=== PATIENT | female | born 1945 | race African-American/Black ===

== ENCOUNTER 2020-11-09 12:22 | Inpatient (IN) | payer MEDICARE ==
[~2020-11-09] VITALS: Ht 157.5 cm; Wt 80.0 kg
--- NOTE | 2020-11-09 13:23 | RAD ---
EXAM: Chest, single view. HISTORY: Stroke. COMPARISON: None. FINDINGS: A frontal view of the chest is obtained. There is no infiltrate, pleural effusion or pneumo thorax. The heart is normal in size. IMPRESSION: No acute pulmonary finding. Electronically signed by: Christina Marin MD (11/09/2020 1:20 PM) [id number]
--- NOTE | 2020-11-09 13:43 | RAD ---
EXAM: Head CT without contrast. HISTORY: Stroke. TECHNIQUE: Computed tomographic images of the head were obtained without contrast. *One or more of the following individualized dose reduction techniques were utilized for this examina tion: 1. Automated exposure control. 2. Adjustment of the mA and/or kV according to patient size. 3. Use of iterative reconstruction technique. COMPARISON: None. FINDINGS: There is no acute or subacute extra-axial or intraparenchymal hemorrhage. There is no mass effect or midline shift. There is no hydrocephalus. There are subtle areas of hypodensity within the cerebral white matter, likely due to chronic small v essel disease in a patient of this age. The possibility of a superimposed right frontal lobe infarct of uncertain chronicity is not excluded on this exam. The visualized portions of the orbits, paranasal sinuses and mastoid air cells are unremarkable. No s uspicious calvarial lesion is seen. IMPRESSION: 1. Subtle region of hypodensity within the right frontal lobe suggesting a subacute or chronic infarc t. MRI is more sensitive for acute infarction. 2. Bilateral cerebral white matter changes likely due to chronic small vessel disease in a patient of this age. Findings were discussed with Dr. Kathrine Nix at 1340 hours on 11/09/2020. Electronically signed by: Christina Marin MD (11/09/2020 1:41 PM) [id number]
--- NOTE | 2020-11-09 13:49 | PHYS DOC ---
General Adult EDM: Chief Complaint: EYE PROBLEMS HPI: HPI: Patient is a 75 year old female with history of hypertension presents emergency department for right vision changes. Patient reports blurry vision that started November 06. She reports on Monday she felt like her vision was all dark with a small pinhole that she could see out of. She reports that it has gotten slightly better. She reports that she went to the family physician today and the family physician sent her to the eye doctor and the eye doctor sent her to the emergency department. It speak with the lane marker installer . I did speak with the lane marker installer Dr. 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 He sent her to the emergency department for stroke work-up. He recommended sed rate CRP CBC with platelets to rule out giant cell arteritis. This did occur 3 days ago therefore would have minimal success with treatment but does need work- up. On my exam patient reports no other symptoms beside the vision abnormalities. No headache, numbness, weakness, abdominal pain, chest pain, shortness of breath, syncope, neck pain, recent illnesses sick contacts or recent travel. Patient did get her [employer] Covid vaccine 1 week ago. No sick contacts. Patient has never had a stroke or heart attack. Review of Systems: Review of Systems: Review of Systems: Constitutional: Denies fever or chills Eyes: Denies rednes. HENT: Denies nasal congestion or sore throat Respiratory: Denies cough or shortness of breath Cardiovascular: Denies chest pain or palpitations GI: denies abdominal pain and nausea, denies vomiting or diarrhea : Denies dysuria or hematuria Musculoskeletal: Denies back pain or joint pain Integument: Denies rash or skin lesions Neurologic: Denies headache, focal weakness or sensory changes Heart Score: C/O Chest Pain: No Physical Exam: PE: *GENERAL APPEARANCE: Awake and alert. Cooperative. No acute distress. Non toxic appearing. HEAD: Normocephalic. Atraumatic. EYES: EOM's grossly intact. Sclera anicteric. Conjunctiva clear. Pupils dilated. ENT:. Airway patent. Mucous membranes moist. No trismus. Tolerating secretions. NECK: Supple. Trachea midline. HEART: Regular rate and rhythm. Radial pulses 2+. Good capillary refill. LUNGS: Respirations unlabored. Clear to auscultation bilaterally. No rales, rhonchi, wheezing or retractions. ABDOMEN: Soft. Non-tender. No guarding or rebound. No CVA tenderness. No palpable or pulsatile mass. EXTREMITIES: No acute deformities. No edema, erythema or calf tenderness. SKIN: Warm and dry. No rash. NEUROLOGICAL: Alert and oriented x3. Cranial nerves II through XII intact. Sensation is normal. Speech normal. Muscle strength is 5 out of 5 bilateral upper and lower extremities. No gross neurological deficits. Moves all 4 extrem ities spontaneously. Cerebellar functions intact. Finger to nose and heel to hung are normal. Gait is stable. No nystagmus. PSYCHIATRIC: Normal mood. EKG: EKG: [] EKG interpretation shows sinus rhythm with ventricular rate of 89 bpm. MI interval 164 ms. QRS duration 120 ms. QTc 478 ms. Radiology/Procedures: Radiology/Procedures: [] Course & Med Decision Making: Course & Med Decision Making Medical decision making: This is a 75-year-old female diagnosed with central retinal artery occlusion at lane marker installer office sent to the emergency department for stroke work-up and r/o GCA. Patient had vision abnormalities as started on 06 November. She has had no other neurologic deficits. No headache. Patient has no history of stroke. Here in the emergency department patient's vital signs are stable. EKG showed no acute ST segment elevations. CT of the head showed no acute intracranial hemorrhage. Subtle region of hypodensity in the right frontal lobe suggesting subacute or chronic infarct. Bilateral cerebral white matter changes. Chest x-ray showed no acute cardiopulmonary findings. I did speak with the on-call neurologist, Dr. Oseguera. Recommend starting Solu-Medrol. Will continue stroke evaluation. At this time based on patient's symptoms and findings will admit to the hospital for further observation and evaluation. Spoke with patient. Agreeable to admission. They are aware of all labs and imaging. All questions answered and patient stable at time of admission. PATIENT: NAYLA BUCKLEY ACCOUNT: [id number] : 1945 LOCATION: ER AGE: 75 SEX: F EXAM STATUS: REG ER ORD. PHYSICIAN: KIM YAÑEZ DO REASON: CRAO, stroke work up PROCEDURE: CT HEAD WO CONTRAST EXAM: Head CT without contrast. HISTORY: Stroke. TECHNIQUE: Computed tomographic images of the head were obtained without contrast. *One or more of the following individualized dose reduction techniques were utilized for this examination: 1. Automated exposure control. 2. Adjustment of the mA and/or kV according to patient size. 3. Use of iterative reconstruction technique. COMPARISON: None. FINDINGS: There is no acute or subacute extra-axial or intraparenchymal hemorrhage. There is no mass effect or midline shift. There is no hydrocephalus. There are subtle areas of hypodensity within the cerebral white matter, likely due to chronic small vessel disease in a patient of this age. The possibility of a superimposed right frontal lobe infarct of uncertain chronicity is not ex cluded on this exam. The visualized portions of the orbits, paranasal sinuses and mastoid air cells are unremarkable. No suspicious calvarial lesion is seen. IMPRESSION: 1. Subtle region of hypodensity within the right frontal lobe suggesting a subacute or chronic infarct. MRI is more sensitive for acute infarction. 2. Bilateral cerebral white matter changes likely due to chronic small vessel disease in a patient of this age. Findings were discussed with Dr. Kathrine Nix at 1340 hours on 11/09/2020. Electronically signed by: Christina Arreola MD (11/09/2020 1:41 PM) [id number] DICTATED and SIGNED BY: CHRISTINA ARREOLA MD DATE: 11/09/20 [id number] PATIENT: NAYLA BUCKLEY ACCOUNT: [id number] : 1945 LOCATION: ER AGE: 75 SEX: F EXAM STATUS: REG ER ORD. PHYSICIAN: KIM YAÑEZ DO REASON: stroke work up PROCEDURE: CHEST AP ONLY EXAM: Chest, single view. HISTORY: Stroke. COMPARISON: None. FINDINGS: A frontal view of the chest is obtained. There is no infiltrate, pleural effusion or pneumothorax. The heart is normal in size. IMPRESSION: No acute pulmonary finding. Electronically signed by: Christina Arreola MD (11/09/2020 1:20 PM) [id number] DICTATED and SIGNED BY: CHRISTINA ARREOLA MD DATE: 11/09/20 [id number] Fam Disclaimer: Fam Disclaimer: This electronic medical record was generated, in whole or in part, using a voice recognition dictation system. Departure Departure Impression: Primary Impression: Central retinal artery occlusion of right eye Disposition: ADMITTED INPATIENT Admitting Physician: LUKASZ (Book with Dr. Conley at 1545. Accepts admission. Will see patient. Patient stable at time of admission.) Referrals: ESDRAS NICHOLS MD (PCP) KIM YAÑEZ DO Nov 09, 2020 13:49
--- NOTE | 2020-11-09 14:07 | EKG ---
[facility] [address] [place] [address] Test Date: 2020-11-09 Test Time: 13:36:57 Pat Name: NAYLA BUCKLEY Department: Room: Gender: F Director Orange: : 1945 Requested By: KIM YAÑEZ Order Number: [id number] Reading MD: Measurements Intervals Telferner Rate: 89 P: 36 MO: 164 QRS: 11 QRSD: 120 T: 139 QT: 392 QTc: 478 Interpretive Statements SINUS RHYTHM T ABNORMALITY IN HIGH LATERAL LEADS INFERIOR LEADS ABNORMAL ECG RI6.02 No previous ECG available for comparison
[2020-11-09 14:40] LABS: BASO % 0 % (0-3); EOS # 0.1 x10^3/uL (0.0-0.7); EOS % 1 % (0-3); HEMATOCRIT 38.6 % (36.0-47.0); LYMPH % 38 % (24-48); MEAN CORPUSCULAR HEMOGLOBIN 32 pg (25-35); MEAN CORPUSCULAR HGB CONC 34 g/dL (31-37); MEAN CORPUSCULAR VOLUME 94 fL (79-100); MONO # 0.5 x10^3/uL (0.0-1.1); MONO % 6 % (0-9); NEUT # 4.3 x10^3/uL (1.8-7.7); NEUT % 55 % (31-73); PLATELET COUNT 247 x10^3/uL (140-400); RED BLOOD COUNT 4.13 x10^6/uL (3.50-5.40); RED CELL DISTRIBUTION WIDTH 12.8 % (11.5-14.5); WHITE BLOOD COUNT 7.8 x10^3/uL (4.0-11.0)
[2020-11-09 14:58] LABS: CALCIUM 9.3 mg/dL (8.5-10.1); CREATININE 0.8 mg/dL (0.6-1.0); GFR 84.4; POTASSIUM 4.1 mmol/L (3.5-5.1)
[2020-11-09 15:03] LABS: ALBUMIN 3.3 g/dL (3.4-5.0); ALBUMIN/GLOBULIN RATIO 0.8 (1.0-1.7); TOTAL BILIRUBIN 0.2 mg/dL (0.2-1.0); TOTAL PROTEIN 7.7 g/dL (6.4-8.2)
[2020-11-09] MEDS ORDERED: methylPREDNISolone SOD SUCC PF 125 MG/2 ML VIAL. IV ONE (16:00)
--- NOTE | 2020-11-09 16:07 | PDOC2 ---
NEUROLOGY CONSULT Date of Service DOS: DATE: 11/09/20 TIME: 16:05 Reason for Consult Reason for Consult: Right eye problems Source Source: Caregiver, Chart review, Patient History of Present Illness History of Present Illness disregard, duplicate Current Medications Current Medications Current Medications Methylprednisolone Sodium Succinate (SOLU-Medrol 125MG VIAL) 125 mg 1X ONCE IV ; Start 11/09/20 at 16:00; Stop 11/09/20 at 16:01; Status UNV Allergies Allergies: Coded Allergies: acetaminophen (Verified Allergy, Severe, Lip swelling, 11/09/20) ROS Review of System Negative for fever, chills, weight loss, shortness of breath, chest pain, indigestion, hematochezia, melena, and dysuria. Full 14-point review of systems is negative. Labs Labs Laboratory Tests Test 11/09/20 14:30 White Blood Count 7.8 x10^3/uL (4.0-11.0) Red Blood Count 4.13 x10^6/uL (3.50-5.40) Hemoglobin 13.0 g/dL (12.0-15.5) Hematocrit 38.6 % (36.0-47.0) Mean Corpuscular Volume 94 fL (79-100) Mean Corpuscular Hemoglobin 32 pg (25-35) Mean Corpuscular Hemoglobin Concent 34 g/dL (31-37) Red Cell Distribution Width 12.8 % (11.5-14.5) Platelet Count 247 x10^3/uL (140-400) Neutrophils (%) (Auto) 55 % (31-73) Lymphocytes (%) (Auto) 38 % (24-48) Monocytes (%) (Auto) 6 % (0-9) Eosinophils (%) (Auto) 1 % (0-3) Basophils (%) (Auto) 0 % (0-3) Neutrophils # (Auto) 4.3 x10^3/uL (1.8-7.7) Lymphocytes # (Auto) 3.0 x10^3/uL (1.0-4.8) Monocytes # (Auto) 0.5 x10^3/uL (0.0-1.1) Eosinophils # (Auto) 0.1 x10^3/uL (0.0-0.7) Basophils # (Auto) 0.0 x10^3/uL (0.0-0.2) Erythrocyte Sedimentation Rate 69 (0-25) Sodium Level 143 mmol/L (136-145) Potassium Level 4.1 mmol/L (3.5-5.1) Chloride Level 104 mmol/L (98-107) Carbon Dioxide Level 32 mmol/L (21-32) Anion Gap 7 (6-14) Blood Urea Nitrogen 13 mg/dL (7-20) Creatinine 0.8 mg/dL (0.6-1.0) Estimated GFR (Cockcroft-Gault) 84.4 BUN/Creatinine Ratio 16 (6-20) Glucose Level 213 mg/dL (70-99) Calcium Level 9.3 mg/dL (8.5-10.1) Total Bilirubin 0.2 mg/dL (0.2-1.0) Aspartate Amino Transf (AST/SGOT) 15 U/L (15-37) Alanine Aminotransferase (ALT/SGPT) 29 U/L (14-59) Alkaline Phosphatase 71 U/L (46-116) Troponin I Quantitative < 0.017 ng/mL (0.000-0.055) C-Reactive Protein, Quantitative 3.9 mg/L (0-3.3) Total Protein 7.7 g/dL (6.4-8.2) Albumin 3.3 g/dL (3.4-5.0) Albumin/Globulin Ratio 0.8 (1.0-1.7) Laboratory Tests Test 11/09/20 14:30 White Blood Count 7.8 x10^3/uL (4.0-11.0) Red Blood Count 4.13 x10^6/uL (3.50-5.40) Hemoglobin 13.0 g/dL (12.0-15.5) Hematocrit 38.6 % (36.0-47.0) Mean Corpuscular Volume 94 fL (79-100) Mean Corpuscular Hemoglobin 32 pg (25-35) Mean Corpuscular Hemoglobin Concent 34 g/dL (31-37) Red Cell Distribution Width 12.8 % (11.5-14.5) Platelet Count 247 x10^3/uL (140-400) Neutrophils (%) (Auto) 55 % (31-73) Lymphocytes (%) (Auto) 38 % (24-48) Monocytes (%) (Auto) 6 % (0-9) Eosinophils (%) (Auto) 1 % (0-3) Basophils (%) (Auto) 0 % (0-3) Neutrophils # (Auto) 4.3 x10^3/uL (1.8-7.7) Lymphocytes # (Auto) 3.0 x10^3/uL (1.0-4.8) Monocytes # (Auto) 0.5 x10^3/uL (0.0-1.1) Eosinophils # (Auto) 0.1 x10^3/uL (0.0-0.7) Basophils # (Auto) 0.0 x10^3/uL (0.0-0.2) Erythrocyte Sedimentation Rate 69 (0-25) Sodium Level 143 mmol/L (136-145) Potassium Level 4.1 mmol/L (3.5-5.1) Chloride Level 104 mmol/L (98-107) Carbon Dioxide Level 32 mmol/L (21-32) Anion Gap 7 (6-14) Blood Urea Nitrogen 13 mg/dL (7-20) Creatinine 0.8 mg/dL (0.6-1.0) Estimated GFR (Cockcroft-Gault) 84.4 BUN/Creatinine Ratio 16 (6-20) Glucose Level 213 mg/dL (70-99) Calcium Level 9.3 mg/dL (8.5-10.1) Total Bilirubin 0.2 mg/dL (0.2-1.0) Aspartate Amino Transf (AST/SGOT) 15 U/L (15-37) Alanine Aminotransferase (ALT/SGPT) 29 U/L (14-59) Alkaline Phosphatase 71 U/L (46-116) Troponin I Quantitative < 0.017 ng/mL (0.000-0.055) C-Reactive Protein, Quantitative 3.9 mg/L (0-3.3) Total Protein 7.7 g/dL (6.4-8.2) Albumin 3.3 g/dL (3.4-5.0) Albumin/Globulin Ratio 0.8 (1.0-1.7) BOLA MOE MD Nov 09, 2020 16:07
[2020-11-09] MEDS ORDERED: ASPIRIN RECTAL 300 MG SUPP. PR PRN (16:15)
[2020-11-09] MEDS: ASPIRIN ENTERIC COATED 325 MG TABLET.DR. PO SCH (16:30)
--- NOTE | 2020-11-09 16:50 | PDOC2 ---
NEUROLOGY CONSULT Date of Service DOS: DATE: 11/09/20 TIME: 16:44 Reason for Consult Reason for Consult: Right eye central retinal artery occlusion Referring Physician Referring Physician: Dr. Conley Source Source: Caregiver, Patient History of Present Illness History of Present Illness The patient is a 75-year-old right-handed female who had painful onset of right eye vision loss on 11/06. She went to the eye doctor, Dr. Green, today who sent her to the emergency department. I discussed the case with Dr. Kathrine Nix. Dr rGeen told her that there were no intraocular problems. Patient has a sedimentation rate of 69 and a CRP of 3.9. I recommended a single dose of Solu-Medrol, general surgery consult for a right temporal artery biopsy, and admission for further stroke work-up. Patient denies any prior history of stroke, seizure, or head injury. She has not been on a daily aspirin before because she had some bleeding on it after her hysterectomy. She says that she has had a little bit of return of vision in the right eye, and the eye pain is better. Past Medical History Cardiovascular: HTN GI: Diverticulosis Past Surgical History Past Surgical History: Tonsillectomy, Hysterectomy Family History Family History: No pertinent hx Social History Social History , no alcohol or tobacco Current Medications Current Medications Current Medications Methylprednisolone Sodium Succinate (SOLU-Medrol 125MG VIAL) 125 mg 1X ONCE IV Last administered on 11/09/20at 16:00; Start 11/09/20 at 16:00; Stop 11/09/20 at 16:20; Status DC Atorvastatin Calcium (Lipitor) 80 mg QHS PO ; Start 11/09/20 at 21:00 Aspirin (Ecotrin) 325 mg DAILYWBKFT PO ; Start 11/09/20 at 16:30 Aspirin (Aspirin Rectal Supp) 300 mg PRN DAILY PRN MI IF UNABLE TO TAKE PO; Start 11/09/20 at 16:15 Allergies Allergies: Coded Allergies: acetaminophen (Verified Allergy, Severe, Lip swelling, 11/09/20) ROS Review of System Negative for fever, chills, weight loss, shortness of breath, chest pain, indigestion, hematochezia, melena, and dysuria. Full 14-point review of systems is negative. Physical Exam Physical Examination General: Well-developed, well-nourished black female in no acute distress HEENT: Normocephalic andatraumatic. Temporal arteriespulsatile and nontender.Fundoscopic exam unremarkable Neck: Supple without bruit, no meningismus Musculoskeletal: Stability:see neurologic. Gait exam:see neurologic. Tone:see neuro logic.Strength:see neurologic. Neurological: Mental Status:intact, orientation, memory, attention span/concentration, langua ge, fund of knowledge normal. Cranial Nerves:Right Hood-Zabrina pupil, left pupil reacts, extraocular movements areintact, visual turner are full to confrontation. Facial sensation is normal. There is no facial asymmetry. Vestibulo-ocular reflex is intact. Palate elevates and tongue protrudes in midline. All other cranial related problems are negative except as mentioned before.Reflexes:2+ and symmetric with flexor plantar responses. Motor:5/5 strength with normal tone and bulk. Coordination:Finger-nose finger and ecle-mp-volx testing are normal. Rapid alternating movements and fine finger movements are intact. Gait:Not tested. Sensory:Normal pinprick, vibration, light touch, proprioception. Labs Labs Laboratory Tests Test 11/09/20 14:30 White Blood Count 7.8 x10^3/uL (4.0-11.0) Red Blood Count 4.13 x10^6/uL (3.50-5.40) Hemoglobin 13.0 g/dL (12.0-15.5) Hematocrit 38.6 % (36.0-47.0) Mean Corpuscular Volume 94 fL (79-100) Mean Corpuscular Hemoglobin 32 pg (25-35) Mean Corpuscular Hemoglobin Concent 34 g/dL (31-37) Red Cell Distribution Width 12.8 % (11.5-14.5) Platelet Count 247 x10^3/uL (140-400) Neutrophils (%) (Auto) 55 % (31-73) Lymphocytes (%) (Auto) 38 % (24-48) Monocytes (%) (Auto) 6 % (0-9) Eosinophils (%) (Auto) 1 % (0-3) Basophils (%) (Auto) 0 % (0-3) Neutrophils # (Auto) 4.3 x10^3/uL (1.8-7.7) Lymphocytes # (Auto) 3.0 x10^3/uL (1.0-4.8) Monocytes # (Auto) 0.5 x10^3/uL (0.0-1.1) Eosinophils # (Auto) 0.1 x10^3/uL (0.0-0.7) Basophils # (Auto) 0.0 x10^3/uL (0.0-0.2) Erythrocyte Sedimentation Rate 69 (0-25) Sodium Level 143 mmol/L (136-145) Potassium Level 4.1 mmol/L (3.5-5.1) Chloride Level 104 mmol/L (98-107) Carbon Dioxide Level 32 mmol/L (21-32) Anion Gap 7 (6-14) Blood Urea Nitrogen 13 mg/dL (7-20) Creatinine 0.8 mg/dL (0.6-1.0) Estimated GFR (Cockcroft-Gault) 84.4 BUN/Creatinine Ratio 16 (6-20) Glucose Level 213 mg/dL (70-99) Calcium Level 9.3 mg/dL (8.5-10.1) Total Bilirubin 0.2 mg/dL (0.2-1.0) Aspartate Amino Transf (AST/SGOT) 15 U/L (15-37) Alanine Aminotransferase (ALT/SGPT) 29 U/L (14-59) Alkaline Phosphatase 71 U/L (46-116) Troponin I Quantitative < 0.017 ng/mL (0.000-0.055) C-Reactive Protein, Quantitative 3.9 mg/L (0-3.3) Total Protein 7.7 g/dL (6.4-8.2) Albumin 3.3 g/dL (3.4-5.0) Albumin/Globulin Ratio 0.8 (1.0-1.7) Laboratory Tests Test 11/09/20 14:30 White Blood Count 7.8 x10^3/uL (4.0-11.0) Red Blood Count 4.13 x10^6/uL (3.50-5.40) Hemoglobin 13.0 g/dL (12.0-15.5) Hematocrit 38.6 % (36.0-47.0) Mean Corpuscular Volume 94 fL (79-100) Mean Corpuscular Hemoglobin 32 pg (25-35) Mean Corpuscular Hemoglobin Concent 34 g/dL (31-37) Red Cell Distribution Width 12.8 % (11.5-14.5) Platelet Count 247 x10^3/uL (140-400) Neutrophils (%) (Auto) 55 % (31-73) Lymphocytes (%) (Auto) 38 % (24-48) Monocytes (%) (Auto) 6 % (0-9) Eosinophils (%) (Auto) 1 % (0-3) Basophils (%) (Auto) 0 % (0-3) Neutrophils # (Auto) 4.3 x10^3/uL (1.8-7.7) Lymphocytes # (Auto) 3.0 x10^3/uL (1.0-4.8) Monocytes # (Auto) 0.5 x10^3/uL (0.0-1.1) Eosinophils # (Auto) 0.1 x10^3/uL (0.0-0.7) Basophils # (Auto) 0.0 x10^3/uL (0.0-0.2) Erythrocyte Sedimentation Rate 69 (0-25) Sodium Level 143 mmol/L (136-145) Potassium Level 4.1 mmol/L (3.5-5.1) Chloride Level 104 mmol/L (98-107) Carbon Dioxide Level 32 mmol/L (21-32) Anion Gap 7 (6-14) Blood Urea Nitrogen 13 mg/dL (7-20) Creatinine 0.8 mg/dL (0.6-1.0) Estimated GFR (Cockcroft-Gault) 84.4 BUN/Creatinine Ratio 16 (6-20) Glucose Level 213 mg/dL (70-99) Calcium Level 9.3 mg/dL (8.5-10.1) Total Bilirubin 0.2 mg/dL (0.2-1.0) Aspartate Amino Transf (AST/SGOT) 15 U/L (15-37) Alanine Aminotransferase (ALT/SGPT) 29 U/L (14-59) Alkaline Phosphatase 71 U/L (46-116) Troponin I Quantitative < 0.017 ng/mL (0.000-0.055) C-Reactive Protein, Quantitative 3.9 mg/L (0-3.3) Total Protein 7.7 g/dL (6.4-8.2) Albumin 3.3 g/dL (3.4-5.0) Albumin/Globulin Ratio 0.8 (1.0-1.7) Images Images Head CT without contrast. There is no acute or subacute extra-axial or intraparenchymal hemorrhage. There is no mass effect or midline shift. There is no hydrocephalus. There are subtle areas of hypodensity within the cerebral white matter, likely due to chronic small vessel disease in a patient of this age. The possibility of a superimposed right frontal lobe infarct of uncertain chronicity is not excluded on this exam. The visualized portions of the orbits, paranasal sinuses and mastoid air cells are unremarkable. No suspicious calvarial lesion is seen. IMPRESSION: 1. Subtle region of hypodensity within the right frontal lobe suggesting a subacute or chronic infarct. MRI is more sensitive for acute infarction. 2. Bilateral cerebral white matter changes likely due to chronic small vessel disease in a patient of this age. Assessment/Plan Assessment/Plan Impression: Right central retinal artery occlusion, but elevated CRP and sedimentation rate are concerning for temporal arteritis. No evidence of temporal artery ten derness on examination. Possible right frontal lobe subacute or chronic infarct Recommendations: Single dose of Solu-Medrol now Surgery consult for right temporal artery biopsy Aspirin MRI of the brain Echocardiogram CT angiogram Check lipids, start statin if abnormal Rehabilitation screening Discussed with Drs. Conley and Kathrine Nix Thank you for letting me help with the patient's care. BOLA MOE MD Nov 09, 2020 16:50
[2020-11-09] MEDS ORDERED: ACETAMINOPHEN 325 MG TABLET. PO PRN (17:45)
[2020-11-09] MEDS ORDERED: DOCUSATE SODIUM 100 MG CAPSULE. PO PRN (17:45)
[2020-11-09] MEDS ORDERED: ONDANSETRON PF 4 MG/2 ML VIAL. IVP PRN (17:45)
[2020-11-09] MEDS ORDERED: DEXTROSE 50% 25 GM / 50ML DISP.SYRIN. IV PRN (17:45)
[2020-11-09] MEDS ORDERED: SENNOSIDES 8.6 MG TABLET PO PRN (17:45)
--- NOTE | 2020-11-09 19:20 | PDOC1 ---
History and Physical Date of Service: DOS: DATE: 11/09/20 TIME: 19:04 Chief Complaint: Chief Complain: Right eye vision loss History of Present Illness: HPI: Case discussed with ED physician and Dr. Arnold Patient is a 75-year-old female with history of hypertension, diverticulosis who presents to the ED with right vision changes. These blurry vision has started on November 06. She states that she was unable to open her eyes in which she did she was unable to see out of her right eye mainly. She did go to see the ey e doctor, Dr. Green who said that there was central retinal artery occlusion and should be sent to the ED for further evaluation. In the ED, she did have a ESR of 69 and a CRP of 3.9. Neurology did evaluate and recommended a single dose of Solu-Medrol and right temporal artery biopsy. No headache, scalp tenderness, numbness, weakness, abdominal pain, chest pain, shortness of breath, syncope, neck pain, recent illnesses sick contacts or recent travel. Patient did get her [employer] Covid vaccine 1 week ago. No sick contacts. Patient has never had a stroke or heart attack. Past Medical/Surgical History: PMH/PSH: Cardiovascular: HTN GI: Diverticulosis Past Surgical History: Tonsillectomy, Hysterectomy Allergies: Allergies: Coded Allergies: acetaminophen (Verified Allergy, Severe, Lip swelling, 11/09/20) Family History: Family History: Reviewed with no pertinent history Social History: Social History: Denies alcohol, tobacco or drug abuse Current Medications: Current Medications Current Medications Methylprednisolone Sodium Succinate (SOLU-Medrol 125MG VIAL) 125 mg 1X ONCE IV Last administered on 11/09/20at 16:00; Start 11/09/20 at 16:00; Stop 11/09/20 at 16:20; Status DC Atorvastatin Calcium (Lipitor) 80 mg QHS PO ; Start 11/09/20 at 21:00 Aspirin (Ecotrin) 325 mg DAILYWBKFT PO Last administered on 11/09/20at 16:30; Start 11/09/20 at 16:30 Aspirin (Aspirin Rectal Supp) 300 mg PRN DAILY PRN MN IF UNABLE TO TAKE PO; Start 11/09/20 at 16:15 Sennosides (Senna) 17.2 mg PRN BID PRN PO CONSTIPATION; Start 11/09/20 at 17:45 Docusate Sodium (Colace) 100 mg PRN DAILY PRN PO HARD STOOLS; Start 11/09/20 at 17:45 Ondansetron HCl (Zofran) 4 mg PRN Q6HRS PRN IVP NAUSEA/VOMITING; Start 11/09/20 at 17:45 Dextrose (Dextrose 50%-Water Syringe) 12.5 gm PRN Q15MIN PRN IV SEE COMMENTS; Start 11/09/20 at 17:45 Acetaminophen (Tylenol) 650 mg PRN Q4HRS PRN PO TEMP OVER 100.4F OR MILD PAIN; Start 11/09/20 at 17:45 ROS: Review of Systems Review of System REVIEW OF SYSTEMS: GENERAL: Denies weakness SKIN: No bruising, hair changes or rashes. EYES: No blurred, double or loss of vision. NOSE AND THROAT: No history of nosebleeds, hoarseness or sore throat. HEART: No history of palpitations, chest pain or shortness of breath on exertion. LUNGS: Denies cough, hemoptysis, wheezing or shortness of breath. GASTROINTESTINAL: Denies changes in appetite, nausea, vomiting, diarrhea or constipation. GENITOURINARY: No history of frequency, urgency, hesitancy or nocturia. NEUROLOGIC: Denies history of numbness, tingling, or tremor. PSYCHIATRIC: No history of panic, anxiety or depression. ENDOCRINE: No history of heat or cold intolerance, polyuria or polydipsia. EXTREMITIES: Denies joint pain, pain on walking or stiffness. Physical Exam: Vital Signs: Vital Signs Date Time Temp Pulse Resp B/P (MAP) Pulse Ox O2 Delivery O2 Flow Rate FiO2 11/09/20 14:08 98.0 85 18 168/70 (102) 96 Room Air 98.0 Physcial Exam: GEN: No apparent distress. Alert and oriented HEENT: Normal cephalic, atraumatic, external auditory canals are patent EYES: Extraocular muscles are intact, pupil are equally round and reactive to light and accommodation MUSCULOSKELETAL: Well developed , well nourished, good range of motion ENDOCRINE: No thyromegaly was palpated LYMPHATICS: No cervical chain or axillary nodes were noted HEMATOPOIETIC: No bruising NECK: Supple, no JVD, no thyromegaly was noted LUNGS: Clear to auscultation in all lung turner without rhonchi or wheezing HEART: RRR, S!, S2 present. Peripheral pulses intact, no obvious murmurs noted ABDOMEN: Soft, nontender. Positive bowel sounds, no organomegaly, normal bowel sounds EXTREMITIES: Without clubbing, cyanosis, or edema. Pedal pulses intact. Negative Homans sign NEUROLOGIC: Normal speech and tone. A&O x 3, moves all extremities, no obvious focal deficits PSYCHIATRIC: Normal affect, normal mood. Stable SKIN: No ulcerations or rashes, good skin turgor, no jaundice VASCULAR: Good capillary refill, neurovascular bundle appears to be intact Labs: Labs: Laboratory Tests Test 11/09/20 14:30 White Blood Count 7.8 x10^3/uL (4.0-11.0) Red Blood Count 4.13 x10^6/uL (3.50-5.40) Hemoglobin 13.0 g/dL (12.0-15.5) Hematocrit 38.6 % (36.0-47.0) Mean Corpuscular Volume 94 fL (79-100) Mean Corpuscular Hemoglobin 32 pg (25-35) Mean Corpuscular Hemoglobin Concent 34 g/dL (31-37) Red Cell Distribution Width 12.8 % (11.5-14.5) Platelet Count 247 x10^3/uL (140-400) Neutrophils (%) (Auto) 55 % (31-73) Lymphocytes (%) (Auto) 38 % (24-48) Monocytes (%) (Auto) 6 % (0-9) Eosinophils (%) (Auto) 1 % (0-3) Basophils (%) (Auto) 0 % (0-3) Neutrophils # (Auto) 4.3 x10^3/uL (1.8-7.7) Lymphocytes # (Auto) 3.0 x10^3/uL (1.0-4.8) Monocytes # (Auto) 0.5 x10^3/uL (0.0-1.1) Eosinophils # (Auto) 0.1 x10^3/uL (0.0-0.7) Basophils # (Auto) 0.0 x10^3/uL (0.0-0.2) Erythrocyte Sedimentation Rate 69 (0-25) Sodium Level 143 mmol/L (136-145) Potassium Level 4.1 mmol/L (3.5-5.1) Chloride Level 104 mmol/L (98-107) Carbon Dioxide Level 32 mmol/L (21-32) Anion Gap 7 (6-14) Blood Urea Nitrogen 13 mg/dL (7-20) Creatinine 0.8 mg/dL (0.6-1.0) Estimated GFR (Cockcroft-Gault) 84.4 BUN/Creatinine Ratio 16 (6-20) Glucose Level 213 mg/dL (70-99) Calcium Level 9.3 mg/dL (8.5-10.1) Total Bilirubin 0.2 mg/dL (0.2-1.0) Aspartate Amino Transf (AST/SGOT) 15 U/L (15-37) Alanine Aminotransferase (ALT/SGPT) 29 U/L (14-59) Alkaline Phosphatase 71 U/L (46-116) Troponin I Quantitative < 0.017 ng/mL (0.000-0.055) C-Reactive Protein, Quantitative 3.9 mg/L (0-3.3) Total Protein 7.7 g/dL (6.4-8.2) Albumin 3.3 g/dL (3.4-5.0) Albumin/Globulin Ratio 0.8 (1.0-1.7) Laboratory Tests Test 11/09/20 14:30 White Blood Count 7.8 x10^3/uL (4.0-11.0) Red Blood Count 4.13 x10^6/uL (3.50-5.40) Hemoglobin 13.0 g/dL (12.0-15.5) Hematocrit 38.6 % (36.0-47.0) Mean Corpuscular Volume 94 fL (79-100) Mean Corpuscular Hemoglobin 32 pg (25-35) Mean Corpuscular Hemoglobin Concent 34 g/dL (31-37) Red Cell Distribution Width 12.8 % (11.5-14.5) Platelet Count 247 x10^3/uL (140-400) Neutrophils (%) (Auto) 55 % (31-73) Lymphocytes (%) (Auto) 38 % (24-48) Monocytes (%) (Auto) 6 % (0-9) Eosinophils (%) (Auto) 1 % (0-3) Basophils (%) (Auto) 0 % (0-3) Neutrophils # (Auto) 4.3 x10^3/uL (1.8-7.7) Lymphocytes # (Auto) 3.0 x10^3/uL (1.0-4.8) Monocytes # (Auto) 0.5 x10^3/uL (0.0-1.1) Eosinophils # (Auto) 0.1 x10^3/uL (0.0-0.7) Basophils # (Auto) 0.0 x10^3/uL (0.0-0.2) Erythrocyte Sedimentation Rate 69 (0-25) Sodium Level 143 mmol/L (136-145) Potassium Level 4.1 mmol/L (3.5-5.1) Chloride Level 104 mmol/L (98-107) Carbon Dioxide Level 32 mmol/L (21-32) Anion Gap 7 (6-14) Blood Urea Nitrogen 13 mg/dL (7-20) Creatinine 0.8 mg/dL (0.6-1.0) Estimated GFR (Cockcroft-Gault) 84.4 BUN/Creatinine Ratio 16 (6-20) Glucose Level 213 mg/dL (70-99) Calcium Level 9.3 mg/dL (8.5-10.1) Total Bilirubin 0.2 mg/dL (0.2-1.0) Aspartate Amino Transf (AST/SGOT) 15 U/L (15-37) Alanine Aminotransferase (ALT/SGPT) 29 U/L (14-59) Alkaline Phosphatase 71 U/L (46-116) Troponin I Quantitative < 0.017 ng/mL (0.000-0.055) C-Reactive Protein, Quantitative 3.9 mg/L (0-3.3) Total Protein 7.7 g/dL (6.4-8.2) Albumin 3.3 g/dL (3.4-5.0) Albumin/Globulin Ratio 0.8 (1.0-1.7) Images: Images CT HEAD IMPRESSION: 1. Subtle region of hypodensity within the right frontal lobe suggesting a subacute or chronic infarct. MRI is more sensitive for acute infarction. 2. Bilateral cerebral white matter changes likely due to chronic small vessel disease in a patient of this age. CXR IMPRESSION: No acute pulmonary finding. Assessment/Plan Assessment/Plan Acute vision loss, concern for temporal arteritis Right central retinal artery occlusion Possible right frontal lobe subacute or chronic infarct History of hypertension Admit to medicine for further management Neurology consult for evaluation of her stroke General surgery consult for temporal artery biopsy Neuro and vascular serial exams Continue aspirin Continue high intensity statins Lovenox for DVT prophylaxis Protonix GI prophylaxis ADA diet Full code Discussed with RN and SW Disposition inpatient management as above Surrogate decision maker is Goals of Care: Advance Care Planning: Total time spent [id number] with patient greater than 16 minutes in discussion with goals of care, comfort care, end-of-life care, pain management, code status Justifications for Admission Other Justification Acute TIA versus acute stroke, central retinal artery occlusion LUIS KUO MD Nov 09, 2020 19:20
[2020-11-09 20:50] VITALS: BP 187/84
[2020-11-09] MEDS ORDERED: ATORVASTATIN CALCIUM 40 MG TABLET. PO SCH (21:00)
[2020-11-09] MEDS ORDERED: LISI20TA18 PO (23:33)
[2020-11-09] MEDS ORDERED: SUCR1TAB PO (23:33)
[2020-11-09] MEDS ORDERED: HYDR12.58 PO (23:33)
[2020-11-09] MEDS ORDERED: ATEN100T PO (23:33)
[2020-11-09] MEDS ORDERED: PANT40TA77 PO (23:33)
[2020-11-09 23:48] VITALS: BP 139/63
--- NOTE | 2020-11-10 00:24 | NUR ---
The patient, NAYLA BUCKLEY, 75 y/o, F admitted by LUIS KUO MD, was given written information regarding hospital policies, unit procedures and contact persons. Valuables were checked and home medications restarted except atenolol. Bedside NIH and Christiansen done and NIH 0 and Christiansen passed.
[2020-11-10 03:22] VITALS: BP 172/76
[2020-11-10 07:00] VITALS: BP 138/65
[2020-11-10] MEDS ORDERED: PANTOPRAZOLE 40 MG TABLET.DR. PO SCH (07:30)
[2020-11-10] MEDS ORDERED: IOHEXOL 300 MG/ML 100ML VIAL. IV ONE ×2 (08:30→12:30)
[2020-11-10] MEDS ORDERED: CONTRAST GIVEN. MC PRN ×2 (08:30→12:30)
[2020-11-10] MEDS ORDERED: hydroCHLOROthiazide 12.5 MG CAPSULE PO SCH (09:00)
[2020-11-10] MEDS ORDERED: LISINOPRIL 20 MG TABLET PO SCH (09:00)
--- NOTE | 2020-11-10 09:26 | RAD ---
MRI BRAIN WO Date: 11/09/2020 8:42 AM Indication: CVA Comparison: CT 11/09/2020. Technique: Multiplanar multisequence MRI of the brain was performed without intravenous contrast usin g the standard protocol. Findings: Small area of restricted diffusion in the right frontal region, corresponding to the area of hypoatte nuation seen on the prior CT. Additional focus of restricted diffusion just posterior to this. No acu te or chronic hemorrhage. The ventricles are normal in size and configuration without hydrocephalus. Mild scattered FLAIR hyperintensities in the subcortical and periventricular deep white matter, a non specific finding, most commonly seen with chronic small vessel ischemic disease. The scalp and calvarium are normal. The pituitary and sella are normal. No Chiari malformation. Mild incompletely characterized degenerative spondylosis of the visualized upper cervical spine. The visualized orbits and globes are normal. Maxillary sinus mucus retention cysts. The mastoid air c ells are clear. Normal flow voids within the vertebral, basilar, and internal carotid arteries indicating patency. IMPRESSION: 1. Small area of acute infarct in the right frontal lobe, with an additional focus just posterior to this. No acute hemorrhage. 2. Mild scattered FLAIR hyperintensities in the subcortical and periventricular deep white matter, a nonspecific finding, most commonly seen with chronic small vessel ischemic disease. Electronically signed by: Alexis Mar MD (11/10/2020 9:23 AM) [id number]
--- NOTE | 2020-11-10 09:58 | PDOC2 ---
TORVIKAS Marti PROFESSOR OF OCEANOGRAPHY 11/10/20 0958: CONSULT Date of Consult Date of Consult DATE: 11/10/20 TIME: 09:52 Reason for Consult Reason for Consult: biopsy Referring Physician Referring Physician: Dr Arnold Identification/Chief Complaint Chief Complaint vision loss Source Source: Chart review, Patient History of Present Illness Reason for Visit: Admitted with painful loss of vision that started on 11/06. Neurology is f ollowing, surgical request for TA biopsy. Discussed with pt, no previous TA bx has been done. sedimentation rate of 69 and a CRP of 3.9 Past Medical History Cardiovascular: HTN GI: Diverticulosis Past Surgical History Past Surgical History: Tonsillectomy, Hysterectomy Family History Family History: Other (noncontributory to current illness ) Social History No ALCOHOL: none Drugs: None Lives: with Family Current Medications Current Medications Current Medications Methylprednisolone Sodium Succinate (SOLU-Medrol 125MG VIAL) 125 mg 1X ONCE IV Last administered on 11/09/20at 16:00; Start 11/09/20 at 16:00; Stop 11/09/20 at 16:20; Status DC Atorvastatin Calcium (Lipitor) 80 mg QHS PO Last administered on 11/09/20at 21:51; Start 11/09/20 at 21:00 Aspirin (Ecotrin) 325 mg DAILYWBKFT PO Last administered on 11/09/20at 16:30; Start 11/09/20 at 16:30 Aspirin (Aspirin Rectal Supp) 300 mg PRN DAILY PRN [place] IF UNABLE TO TAKE PO; Start 11/09/20 at 16:15 Sennosides (Senna) 17.2 mg PRN BID PRN PO CONSTIPATION; Start 11/09/20 at 17:45 Docusate Sodium (Colace) 100 mg PRN DAILY PRN PO HARD STOOLS; Start 11/09/20 at 17:45 Ondansetron HCl (Zofran) 4 mg PRN Q6HRS PRN IVP NAUSEA/VOMITING; Start 11/09/20 at 17:45 Dextrose (Dextrose 50%-Water Syringe) 12.5 gm PRN Q15MIN PRN IV SEE COMMENTS; Start 11/09/20 at 17:45 Acetaminophen (Tylenol) 650 mg PRN Q4HRS PRN PO TEMP OVER 100.4F OR MILD PAIN; Start 11/09/20 at 17:45 Lisinopril (Prinivil) 20 mg DAILY PO ; Start 11/10/20 at 09:00 Pantoprazole Sodium (Protonix) 40 mg DAILYAC PO ; Start 11/10/20 at 07:30 Sucralfate (Carafate) 1 gm QIDACHS PO ; Start 11/10/20 at 07:30 Hydrochlorothiazide (Microzide) 12.5 mg DAILY PO ; Start 11/10/20 at 09:00 Iohexol (Omnipaque 300 Mg/ml) 75 ml 1X ONCE IV ; Start 11/10/20 at 08:30; Stop 11/10/20 at 08:31; Status DC Info (CONTRAST GIVEN -- Rx MONITORING) 1 each PRN DAILY PRN MC SEE COMMENTS; Start 11/10/20 at 08:30; Stop 11/12/20 at 08:29 Fentanyl Citrate (Fentanyl 2ml Vial) 25 mcg PRN Q5MIN PRN IVP MILD PAIN 1-3; Start 11/11/20 at 06:00; Stop 11/12/20 at 05:59; Status UNV Fentanyl Citrate (Fentanyl 2ml Vial) 50 mcg PRN Q5MIN PRN IVP MODERATE PAIN 4- 6; Start 11/11/20 at 06:00; Stop 11/12/20 at 05:59; Status UNV Morphine Sulfate (Morphine Sulfate) 1 mg PRN Q10MIN PRN IVP SEVERE PAIN 7-10; Start 11/11/20 at 06:00; Stop 11/12/20 at 05:59; Status UNV Ringer's Solution 1,000 ml @ 30 mls/hr Q24H IV ; Start 11/11/20 at 06:00; Stop 11/11/20 at 17:59; Status UNV Hydromorphone HCl (Dilaudid) 0.5 mg PRN Q10MIN PRN IVP SEVERE PAIN 7-10, 2nd CH OICE; Start 11/11/20 at 06:00; Stop 11/12/20 at 05:59; Status UNV Prochlorperazine Edisylate (Compazine) 5 mg PACU PRN PRN IVP NAUSEA, MRX1; Start 11/11/20 at 06:00; Stop 11/12/20 at 05:59; Status UNV Active Scripts Active Reported Sucralfate 1 Gm Tablet 1 Tab PO QID Pantoprazole Sodium (Pantoprazole Sodium) 40 Mg Tablet.dr 40 Mg PO DAILYAC Hydrochlorothiazide Tablet (Hydrochlorothiazide) 12.5 Mg Tablet 12.5 Mg PO DAILY PRN Lisinopril 20 Mg Tablet 1 Tab PO DAILY Atenolol 100 Mg Tablet 1 Tab PO DAILY Allergies Allergies: Coded Allergies: acetaminophen (Verified Allergy, Severe, Lip swelling, 11/09/20) ROS General: No: Chills, Fatigue PSYCHOLOGICAL ROS: No: Anxiety, Depression Eyes: Yes Other (see hpi) HEENT: YES: Visual Changes; No: Heacaches Hematological and Lymphatic: No: Bleeding Problems, Blood Clots Respiratory: No: Cough, Shortness of breath Cardiovascular: No Chest Pain, No Palpitations Gastrointestinal: No Nausea, No Vomiting Genitourinary: No Dysuria, No Hematuria Musculoskeletal: No Joint Pain, No Muscle Pain Neurological: No Impaired Coord/balance, No Numbness/Tingling Skin: No Pruritus, No Rash Physical Exam General: Alert, Oriented X3, Cooperative HEENT: Atraumatic, PERRLA, Other (right TA area nontender ) Lungs: Clear to auscultation, Normal air movement Heart: Regular rate, Normal S1, Normal S2 Abdomen: Soft, No tenderness Extremities: No clubbing, No cyanosis Skin: No rashes, No breakdown Neuro: Normal speech, Sensation intact Psych/Mental Status: Mental status NL, Mood NL MUSCULOSKELETAL: No deformity, No swelling Vitals VITALS Vital Signs Date Time Temp Pulse Resp B/P (MAP) Pulse Ox O2 Delivery O2 Flow Rate FiO2 11/10/20 07:00 97.5 74 18 138/65 (89) 99 Room Air 97.5 Labs Labs Laboratory Tests Test 11/09/20 14:30 White Blood Count 7.8 x10^3/uL (4.0-11.0) Red Blood Count 4.13 x10^6/uL (3.50-5.40) Hemoglobin 13.0 g/dL (12.0-15.5) Hematocrit 38.6 % (36.0-47.0) Mean Corpuscular Volume 94 fL (79-100) Mean Corpuscular Hemoglobin 32 pg (25-35) Mean Corpuscular Hemoglobin Concent 34 g/dL (31-37) Red Cell Distribution Width 12.8 % (11.5-14.5) Platelet Count 247 x10^3/uL (140-400) Neutrophils (%) (Auto) 55 % (31-73) Lymphocytes (%) (Auto) 38 % (24-48) Monocytes (%) (Auto) 6 % (0-9) Eosinophils (%) (Auto) 1 % (0-3) Basophils (%) (Auto) 0 % (0-3) Neutrophils # (Auto) 4.3 x10^3/uL (1.8-7.7) Lymphocytes # (Auto) 3.0 x10^3/uL (1.0-4.8) Monocytes # (Auto) 0.5 x10^3/uL (0.0-1.1) Eosinophils # (Auto) 0.1 x10^3/uL (0.0-0.7) Basophils # (Auto) 0.0 x10^3/uL (0.0-0.2) Erythrocyte Sedimentation Rate 69 (0-25) Sodium Level 143 mmol/L (136-145) Potassium Level 4.1 mmol/L (3.5-5.1) Chloride Level 104 mmol/L (98-107) Carbon Dioxide Level 32 mmol/L (21-32) Anion Gap 7 (6-14) Blood Urea Nitrogen 13 mg/dL (7-20) Creatinine 0.8 mg/dL (0.6-1.0) Estimated GFR (Cockcroft-Gault) 84.4 BUN/Creatinine Ratio 16 (6-20) Glucose Level 213 mg/dL (70-99) Calcium Level 9.3 mg/dL (8.5-10.1) Total Bilirubin 0.2 mg/dL (0.2-1.0) Aspartate Amino Transf (AST/SGOT) 15 U/L (15-37) Alanine Aminotransferase (ALT/SGPT) 29 U/L (14-59) Alkaline Phosphatase 71 U/L (46-116) Troponin I Quantitative < 0.017 ng/mL (0.000-0.055) C-Reactive Protein, Quantitative 3.9 mg/L (0-3.3) Total Protein 7.7 g/dL (6.4-8.2) Albumin 3.3 g/dL (3.4-5.0) Albumin/Globulin Ratio 0.8 (1.0-1.7) Laboratory Tests Test 11/09/20 14:30 White Blood Count 7.8 x10^3/uL (4.0-11.0) Red Blood Count 4.13 x10^6/uL (3.50-5.40) Hemoglobin 13.0 g/dL (12.0-15.5) Hematocrit 38.6 % (36.0-47.0) Mean Corpuscular Volume 94 fL (79-100) Mean Corpuscular Hemoglobin 32 pg (25-35) Mean Corpuscular Hemoglobin Concent 34 g/dL (31-37) Red Cell Distribution Width 12.8 % (11.5-14.5) Platelet Count 247 x10^3/uL (140-400) Neutrophils (%) (Auto) 55 % (31-73) Lymphocytes (%) (Auto) 38 % (24-48) Monocytes (%) (Auto) 6 % (0-9) Eosinophils (%) (Auto) 1 % (0-3) Basophils (%) (Auto) 0 % (0-3) Neutrophils # (Auto) 4.3 x10^3/uL (1.8-7.7) Lymphocytes # (Auto) 3.0 x10^3/uL (1.0-4.8) Monocytes # (Auto) 0.5 x10^3/uL (0.0-1.1) Eosinophils # (Auto) 0.1 x10^3/uL (0.0-0.7) Basophils # (Auto) 0.0 x10^3/uL (0.0-0.2) Erythrocyte Sedimentation Rate 69 (0-25) Sodium Level 143 mmol/L (136-145) Potassium Level 4.1 mmol/L (3.5-5.1) Chloride Level 104 mmol/L (98-107) Carbon Dioxide Level 32 mmol/L (21-32) Anion Gap 7 (6-14) Blood Urea Nitrogen 13 mg/dL (7-20) Creatinine 0.8 mg/dL (0.6-1.0) Estimated GFR (Cockcroft-Gault) 84.4 BUN/Creatinine Ratio 16 (6-20) Glucose Level 213 mg/dL (70-99) Calcium Level 9.3 mg/dL (8.5-10.1) Total Bilirubin 0.2 mg/dL (0.2-1.0) Aspartate Amino Transf (AST/SGOT) 15 U/L (15-37) Alanine Aminotransferase (ALT/SGPT) 29 U/L (14-59) Alkaline Phosphatase 71 U/L (46-116) Troponin I Quantitative < 0.017 ng/mL (0.000-0.055) C-Reactive Protein, Quantitative 3.9 mg/L (0-3.3) Total Protein 7.7 g/dL (6.4-8.2) Albumin 3.3 g/dL (3.4-5.0) Albumin/Globulin Ratio 0.8 (1.0-1.7) Assessment/Plan Assessment/Plan will plan for right TA bx in AM JODI FALL MD 11/10/20 1237: CONSULT Assessment/Plan Assessment/Plan Pt seen and examined by myself; 75 year old female admitted due to vision changes and right sided eye pain starting last Monday. She was dx with central artery occlusion and admitted for treatment. Pt has elevated sed rate and CRP and temporal artery biopsy requested. PMH/PSH/ROS/SH as above; exam: alert, oriented, no distress, no icterus, R temporal artery pulsatile, nontender, lungs clear, heart RR and R, abdomen soft, nontender, ext neg for edema. Labs/xrays reviewed; plan for R temporal artery biopsy on 11/11/20; the details and risks of surgery were discussed with the patient. She understands and would like to proceed. VIKAS LENTZ APRN Nov 10, 2020 09:58 JODI FALL MD Nov 10, 2020 12:37
[2020-11-10 10:39] LABS: CALCIUM 9.7 mg/dL (8.5-10.1); CREATININE 0.7 mg/dL (0.6-1.0); GFR 98.4; MAGNESIUM 2.2 mg/dL (1.8-2.4); PHOSPHORUS 4.1 mg/dL (2.6-4.7)
[2020-11-10 10:44] LABS: CHOLESTEROL/HDL RATIO 4.5
--- NOTE | 2020-11-10 10:52 | PDOC ---
PROGRESS NOTES Date of Service DATE: 11/10/20 TIME: 10:48 Assessment Right central retinal artery occlusion, but elevated CRP and sedimentation rate are concerning for temporal arteritis. No evidence of temporal artery tenderness on examination. Small area of acute infarct in the right frontal lobe, with an additional focus just posterior to this. Hyperlipidemia Plan Received a single dose of Solu-Medrol 11/09 Surgery consult for right temporal artery biopsy Aspirin Await echocardiogram and CT angiogram High-dose statin Rehabilitation screening Subjective Pain is better Objective Vital Signs Date Time Temp Pulse Resp B/P (MAP) Pulse Ox O2 Delivery O2 Flow Rate FiO2 11/10/20 07:00 97.5 74 18 138/65 (89) 99 Room Air 97.5 Intake and Output 11/10/20 07:00 Intake Total 0 ml Balance 0 ml Intake Oral 0 ml PHYSICAL EXAM Alert. Oriented to time, place and person. Right Hood-Zabrina pupil, left pupil reacts EOMI. CN: no focal findings. Muscle tone: normal. Muscle strength: 5/5 DTR: 2+ Plantar reflex: flexor Gait: not examined in bed. Sensory exam: no abnormal findings. No cerebellar signs elicited. Review of Relevant I have reviewed the following items lalito (where applicable) has been applied. Labs Laboratory Tests Test 11/09/20 14:30 11/10/20 09:45 White Blood Count 7.8 x10^3/uL (4.0-11.0) Red Blood Count 4.13 x10^6/uL (3.50-5.40) Hemoglobin 13.0 g/dL (12.0-15.5) Hematocrit 38.6 % (36.0-47.0) Mean Corpuscular Volume 94 fL (79-100) Mean Corpuscular Hemoglobin 32 pg (25-35) Mean Corpuscular Hemoglobin Concent 34 g/dL (31-37) Red Cell Distribution Width 12.8 % (11.5-14.5) Platelet Count 247 x10^3/uL (140-400) Neutrophils (%) (Auto) 55 % (31-73) Lymphocytes (%) (Auto) 38 % (24-48) Monocytes (%) (Auto) 6 % (0-9) Eosinophils (%) (Auto) 1 % (0-3) Basophils (%) (Auto) 0 % (0-3) Neutrophils # (Auto) 4.3 x10^3/uL (1.8-7.7) Lymphocytes # (Auto) 3.0 x10^3/uL (1.0-4.8) Monocytes # (Auto) 0.5 x10^3/uL (0.0-1.1) Eosinophils # (Auto) 0.1 x10^3/uL (0.0-0.7) Basophils # (Auto) 0.0 x10^3/uL (0.0-0.2) Erythrocyte Sedimentation Rate 69 (0-25) Sodium Level 143 mmol/L (136-145) 143 mmol/L (136-145) Potassium Level 4.1 mmol/L (3.5-5.1) 4.0 mmol/L (3.5-5.1) Chloride Level 104 mmol/L (98-107) 104 mmol/L (98-107) Carbon Dioxide Level 32 mmol/L (21-32) 29 mmol/L (21-32) Anion Gap 7 (6-14) 10 (6-14) Blood Urea Nitrogen 13 mg/dL (7-20) 16 mg/dL (7-20) Creatinine 0.8 mg/dL (0.6-1.0) 0.7 mg/dL (0.6-1.0) Estimated GFR (Cockcroft-Gault) 84.4 98.4 BUN/Creatinine Ratio 16 (6-20) Glucose Level 213 mg/dL (70-99) 181 mg/dL (70-99) Calcium Level 9.3 mg/dL (8.5-10.1) 9.7 mg/dL (8.5-10.1) Total Bilirubin 0.2 mg/dL (0.2-1.0) Aspartate Amino Transf (AST/SGOT) 15 U/L (15-37) Alanine Aminotransferase (ALT/SGPT) 29 U/L (14-59) Alkaline Phosphatase 71 U/L (46-116) Troponin I Quantitative < 0.017 ng/mL (0.000-0.055) C-Reactive Protein, Quantitative 3.9 mg/L (0-3.3) Total Protein 7.7 g/dL (6.4-8.2) Albumin 3.3 g/dL (3.4-5.0) Albumin/Globulin Ratio 0.8 (1.0-1.7) Phosphorus Level 4.1 mg/dL (2.6-4.7) Magnesium Level 2.2 mg/dL (1.8-2.4) Triglycerides Level 101 mg/dL (0-150) Cholesterol Level 241 mg/dL (0-200) LDL Cholesterol, Calculated 167 mg/dL (0-100) VLDL Cholesterol, Calculated 20 mg/dL (0-40) Non-HDL Cholesterol Calculated 187 mg/dL (0-129) HDL Cholesterol 54 mg/dL (40-60) Cholesterol/HDL Ratio 4.5 Laboratory Tests Test 11/09/20 14:30 11/10/20 09:45 White Blood Count 7.8 x10^3/uL (4.0-11.0) Red Blood Count 4.13 x10^6/uL (3.50-5.40) Hemoglobin 13.0 g/dL (12.0-15.5) Hematocrit 38.6 % (36.0-47.0) Mean Corpuscular Volume 94 fL (79-100) Mean Corpuscular Hemoglobin 32 pg (25-35) Mean Corpuscular Hemoglobin Concent 34 g/dL (31-37) Red Cell Distribution Width 12.8 % (11.5-14.5) Platelet Count 247 x10^3/uL (140-400) Neutrophils (%) (Auto) 55 % (31-73) Lymphocytes (%) (Auto) 38 % (24-48) Monocytes (%) (Auto) 6 % (0-9) Eosinophils (%) (Auto) 1 % (0-3) Basophils (%) (Auto) 0 % (0-3) Neutrophils # (Auto) 4.3 x10^3/uL (1.8-7.7) Lymphocytes # (Auto) 3.0 x10^3/uL (1.0-4.8) Monocytes # (Auto) 0.5 x10^3/uL (0.0-1.1) Eosinophils # (Auto) 0.1 x10^3/uL (0.0-0.7) Basophils # (Auto) 0.0 x10^3/uL (0.0-0.2) Erythrocyte Sedimentation Rate 69 (0-25) Sodium Level 143 mmol/L (136-145) 143 mmol/L (136-145) Potassium Level 4.1 mmol/L (3.5-5.1) 4.0 mmol/L (3.5-5.1) Chloride Level 104 mmol/L (98-107) 104 mmol/L (98-107) Carbon Dioxide Level 32 mmol/L (21-32) 29 mmol/L (21-32) Anion Gap 7 (6-14) 10 (6-14) Blood Urea Nitrogen 13 mg/dL (7-20) 16 mg/dL (7-20) Creatinine 0.8 mg/dL (0.6-1.0) 0.7 mg/dL (0.6-1.0) Estimated GFR (Cockcroft-Gault) 84.4 98.4 BUN/Creatinine Ratio 16 (6-20) Glucose Level 213 mg/dL (70-99) 181 mg/dL (70-99) Calcium Level 9.3 mg/dL (8.5-10.1) 9.7 mg/dL (8.5-10.1) Total Bilirubin 0.2 mg/dL (0.2-1.0) Aspartate Amino Transf (AST/SGOT) 15 U/L (15-37) Alanine Aminotransferase (ALT/SGPT) 29 U/L (14-59) Alkaline Phosphatase 71 U/L (46-116) Troponin I Quantitative < 0.017 ng/mL (0.000-0.055) C-Reactive Protein, Quantitative 3.9 mg/L (0-3.3) Total Protein 7.7 g/dL (6.4-8.2) Albumin 3.3 g/dL (3.4-5.0) Albumin/Globulin Ratio 0.8 (1.0-1.7) Phosphorus Level 4.1 mg/dL (2.6-4.7) Magnesium Level 2.2 mg/dL (1.8-2.4) Triglycerides Level 101 mg/dL (0-150) Cholesterol Level 241 mg/dL (0-200) LDL Cholesterol, Calculated 167 mg/dL (0-100) VLDL Cholesterol, Calculated 20 mg/dL (0-40) Non-HDL Cholesterol Calculated 187 mg/dL (0-129) HDL Cholesterol 54 mg/dL (40-60) Cholesterol/HDL Ratio 4.5 Medications Current Medications Methylprednisolone Sodium Succinate (SOLU-Medrol 125MG VIAL) 125 mg 1X ONCE IV Last administered on 11/09/20at 16:00; Start 11/09/20 at 16:00; Stop 11/09/20 at 16:20; Status DC Atorvastatin Calcium (Lipitor) 80 mg QHS PO Last administered on 11/09/20at 21:51; Start 11/09/20 at 21:00 Aspirin (Ecotrin) 325 mg DAILYWBKFT PO Last administered on 11/09/20at 16:30; Start 11/09/20 at 16:30 Aspirin (Aspirin Rectal Supp) 300 mg PRN DAILY PRN TN IF UNABLE TO TAKE PO; Start 11/09/20 at 16:15 Sennosides (Senna) 17.2 mg PRN BID PRN PO CONSTIPATION; Start 11/09/20 at 17:45 Docusate Sodium (Colace) 100 mg PRN DAILY PRN PO HARD STOOLS; Start 11/09/20 at 17:45 Ondansetron HCl (Zofran) 4 mg PRN Q6HRS PRN IVP NAUSEA/VOMITING; Start 11/09/20 at 17:45 Dextrose (Dextrose 50%-Water Syringe) 12.5 gm PRN Q15MIN PRN IV SEE COMMENTS; Start 11/09/20 at 17:45 Acetaminophen (Tylenol) 650 mg PRN Q4HRS PRN PO TEMP OVER 100.4F OR MILD PAIN; Start 11/09/20 at 17:45 Lisinopril (Prinivil) 20 mg DAILY PO ; Start 11/10/20 at 09:00 Pantoprazole Sodium (Protonix) 40 mg DAILYAC PO ; Start 11/10/20 at 07:30 Sucralfate (Carafate) 1 gm QIDACHS PO ; Start 11/10/20 at 07:30 Hydrochlorothiazide (Microzide) 12.5 mg DAILY PO ; Start 11/10/20 at 09:00 Iohexol (Omnipaque 300 Mg/ml) 75 ml 1X ONCE IV ; Start 11/10/20 at 08:30; Stop 11/10/20 at 08:31; Status DC Info (CONTRAST GIVEN -- Rx MONITORING) 1 each PRN DAILY PRN MC SEE COMMENTS; Start 11/10/20 at 08:30; Stop 11/12/20 at 08:29 Fentanyl Citrate (Fentanyl 2ml Vial) 25 mcg PRN Q5MIN PRN IVP MILD PAIN 1-3; Start 11/11/20 at 06:00; Stop 11/11/20 at 20:00 Fentanyl Citrate (Fentanyl 2ml Vial) 50 mcg PRN Q5MIN PRN IVP MODERATE PAIN 4- 6; Start 11/11/20 at 06:00; Stop 11/11/20 at 20:00 Morphine Sulfate (Morphine Sulfate) 1 mg PRN Q10MIN PRN IVP SEVERE PAIN 7-10; Start 11/11/20 at 06:00; Stop 11/11/20 at 20:00 Ringer's Solution 1,000 ml @ 30 mls/hr Q24H IV ; Start 11/11/20 at 06:00; Stop 11/11/20 at 17:59 Hydromorphone HCl (Dilaudid) 0.5 mg PRN Q10MIN PRN IVP SEVERE PAIN 7-10, 2nd CHOICE; Start 11/11/20 at 06:00; Stop 11/11/20 at 20:00 Prochlorperazine Edisylate (Compazine) 5 mg PACU PRN PRN IVP NAUSEA, MRX1; Start 11/11/20 at 06:00; Stop 11/11/20 at 20:00 Active Scripts Active Reported Sucralfate 1 Gm Tablet 1 Tab PO QID Pantoprazole Sodium (Pantoprazole Sodium) 40 Mg Tablet.dr 40 Mg PO DAILYAC Hydrochlorothiazide Tablet (Hydrochlorothiazide) 12.5 Mg Tablet 12.5 Mg PO DAILY PRN Lisinopril 20 Mg Tablet 1 Tab PO DAILY Atenolol 100 Mg Tablet 1 Tab PO DAILY Vitals/I & O Vital Sign - Last 24 Hours 11/09/20 11/09/20 11/09/20 11/09/20 13:32 14:08 14:32 15:32 Temp 98.0 98.0 Pulse 84 85 79 80 Resp 18 18 18 18 B/P (MAP) 168/70 (102) 168/70 (102) 151/66 (94) 147/66 (93) Pulse Ox 95 96 95 98 O2 Delivery Room Air 11/09/20 11/09/20 11/09/20 11/09/20 16:32 17:32 18:32 19:00 Pulse 85 77 76 76 Resp 16 16 16 10 B/P (MAP) 153/67 (95) 140/63 (88) 155/67 (96) 147/67 (93) Pulse Ox 99 96 95 96 11/09/20 11/09/20 11/09/20 11/09/20 19:30 20:00 20:50 20:50 Temp 98.4 98.4 Pulse 90 96 83 Resp 17 18 16 B/P (MAP) 176/90 (118) 147/65 (92) 187/84 (118) Pulse Ox 97 97 94 O2 Delivery Room Air Room Air 11/09/20 11/10/20 11/10/20 23:48 03:22 07:00 Temp 97.9 98.1 97.5 97.9 98.1 97.5 Pulse 75 85 74 Resp 16 18 18 B/P (MAP) 139/63 (88) 172/76 (108) 138/65 (89) Pulse Ox 97 96 99 O2 Delivery Room Air Room Air Room Air Intake and Output 11/09/20 11/09/20 11/10/20 15:00 23:00 07:00 Intake Total 0 ml 0 ml Balance 0 ml 0 ml Images MRI BRAIN WO Date: 11/09/2020 8:42 AM Indication: CVA Comparison: CT 11/09/2020. Technique: Multiplanar multisequence MRI of the brain was performed without intravenous contrast using the standard protocol. Findings: Small area of restricted diffusion in the right frontal region, corresponding to the area of hypoattenuation seen on the prior CT. Additional focus of restricted diffusion just posterior to this. No acute or chronic hemorrhage. The ventricles are normal in size and configuration without hydrocephalus. Mild scattered FLAIR hyperintensities in the subcortical and periventricular deep white matter, a nonspecific finding, most commonly seen with chronic small vessel ischemic disease. The scalp and calvarium are normal. The pituitary and sella are normal. No Chiari malformation. Mild incompletely characterized degenerative spondylosis of the visualized upper cervical spine. The visualized orbits and globes are normal. Maxillary sinus mucus retention cysts. The mastoid air cells are clear. Normal flow voids within the vertebral, basilar, and internal carotid arteries indicating patency. IMPRESSION: 1. Small area of acute infarct in the right frontal lobe, with an additional focus just posterior to this. No acute hemorrhage. 2. Mild scattered FLAIR hyperintensities in the subcortical and periventricular deep white matter, a nonspecific finding, most commonly seen with chronic small vessel ischemic disease. Justicifation of Admission Dx: Justifications for Admission: Justification of Admission Dx: Yes Stroke - Ischemic: Stroke-Ischemic BOLA MOE MD Nov 10, 2020 10:52
--- NOTE | 2020-11-10 10:57 | PDOC ---
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 Patient continues to have mild headache. No changes in her vision. Some nausea. Plan for MRI and CT of the head. Temporal artery biopsy planned for tomorrow patient's chart, labs, images were reviewed and discussed with RN 75-year-old female with history of hypertension, diverticulosis who presents to the ED with right vision changes. These blurry vision has started on November 06. She states that she was unable to open her eyes in which she did she was unable to see out of her right eye mainly. She did go to see the eye doctor, Dr. Green who said that there was central retinal artery occlusion and should be sent to the ED for further evaluation. In the ED, she did have a ESR of 69 and a CRP of 3.9. Neurology did evaluate and recommended a single dose of Solu-Medrol and right temporal artery biopsy. No headache, scalp tenderness, numbness, weakness, abdominal pain, chest pain, shortness of breath, syncope, neck pain, recent illnesses sick contacts or recent travel. Patient did get her [employer] Covid vaccine 1 week ago. No sick contacts. Patient has never had a stroke or heart attack. Vitals/I&O Vitals/I&O: Vital Signs Date Time Temp Pulse Resp B/P (MAP) Pulse Ox O2 Delivery O2 Flow Rate FiO2 11/10/20 07:00 97.5 74 18 138/65 (89) 99 Room Air 97.5 I & O 11/09/20 11/09/20 11/10/20 15:00 23:00 07:00 Intake Total 0 ml 0 ml Balance 0 ml 0 ml Physical Exam General: Alert, Oriented X3, Cooperative Heart: Regular rate, Normal S1, Normal S2 Abdomen: Soft, No tenderness Extremities: No clubbing, No cyanosis Skin: No rashes, No breakdown Labs Labs: Laboratory Tests Test 11/09/20 14:30 11/10/20 09:45 White Blood Count 7.8 x10^3/uL (4.0-11.0) Red Blood Count 4.13 x10^6/uL (3.50-5.40) Hemoglobin 13.0 g/dL (12.0-15.5) Hematocrit 38.6 % (36.0-47.0) Mean Corpuscular Volume 94 fL (79-100) Mean Corpuscular Hemoglobin 32 pg (25-35) Mean Corpuscular Hemoglobin Concent 34 g/dL (31-37) Red Cell Distribution Width 12.8 % (11.5-14.5) Platelet Count 247 x10^3/uL (140-400) Neutrophils (%) (Auto) 55 % (31-73) Lymphocytes (%) (Auto) 38 % (24-48) Monocytes (%) (Auto) 6 % (0-9) Eosinophils (%) (Auto) 1 % (0-3) Basophils (%) (Auto) 0 % (0-3) Neutrophils # (Auto) 4.3 x10^3/uL (1.8-7.7) Lymphocytes # (Auto) 3.0 x10^3/uL (1.0-4.8) Monocytes # (Auto) 0.5 x10^3/uL (0.0-1.1) Eosinophils # (Auto) 0.1 x10^3/uL (0.0-0.7) Basophils # (Auto) 0.0 x10^3/uL (0.0-0.2) Erythrocyte Sedimentation Rate 69 (0-25) Sodium Level 143 mmol/L (136-145) 143 mmol/L (136-145) Potassium Level 4.1 mmol/L (3.5-5.1) 4.0 mmol/L (3.5-5.1) Chloride Level 104 mmol/L (98-107) 104 mmol/L (98-107) Carbon Dioxide Level 32 mmol/L (21-32) 29 mmol/L (21-32) Anion Gap 7 (6-14) 10 (6-14) Blood Urea Nitrogen 13 mg/dL (7-20) 16 mg/dL (7-20) Creatinine 0.8 mg/dL (0.6-1.0) 0.7 mg/dL (0.6-1.0) Estimated GFR (Cockcroft-Gault) 84.4 98.4 BUN/Creatinine Ratio 16 (6-20) Glucose Level 213 mg/dL (70-99) 181 mg/dL (70-99) Calcium Level 9.3 mg/dL (8.5-10.1) 9.7 mg/dL (8.5-10.1) Total Bilirubin 0.2 mg/dL (0.2-1.0) Aspartate Amino Transf (AST/SGOT) 15 U/L (15-37) Alanine Aminotransferase (ALT/SGPT) 29 U/L (14-59) Alkaline Phosphatase 71 U/L (46-116) Troponin I Quantitative < 0.017 ng/mL (0.000-0.055) C-Reactive Protein, Quantitative 3.9 mg/L (0-3.3) Total Protein 7.7 g/dL (6.4-8.2) Albumin 3.3 g/dL (3.4-5.0) Albumin/Globulin Ratio 0.8 (1.0-1.7) Phosphorus Level 4.1 mg/dL (2.6-4.7) Magnesium Level 2.2 mg/dL (1.8-2.4) Triglycerides Level 101 mg/dL (0-150) Cholesterol Level 241 mg/dL (0-200) LDL Cholesterol, Calculated 167 mg/dL (0-100) VLDL Cholesterol, Calculated 20 mg/dL (0-40) Non-HDL Cholesterol Calculated 187 mg/dL (0-129) HDL Cholesterol 54 mg/dL (40-60) Cholesterol/HDL Ratio 4.5 Comment Review of Relevant I have reviewed the following items lalito (where applicable) has been applied. Medications: Current Medications Medications (Trade) Dose Ordered Sig/Vinay Route PRN Reason Start Time Stop Time Status Last Admin Dose Admin Methylprednisolone Sodium Succinate (SOLU-Medrol 125MG VIAL) 125 mg 1X ONCE IV 11/09/20 16:00 11/09/20 16:20 DC 11/09/20 16:00 Atorvastatin Calcium (Lipitor) 80 mg QHS PO 11/09/20 21:00 11/09/20 21:51 Aspirin (Ecotrin) 325 mg DAILYWBKFT PO 11/09/20 16:30 11/09/20 16:30 Justifications for Admission Other Justification Acute TIA versus acute stroke, central retinal artery occlusion LUIS KUO MD Nov 10, 2020 10:57
[2020-11-10 11:00] VITALS: BP 140/53
[2020-11-10] MEDS: SUCRALFATE 1 GM TABLET. PO SCH ×2 (11:30→14:18)
--- NOTE | 2020-11-10 13:03 | NUR ---
SS following for discharge planning. SS reviewed pt chart and discussed with pt RN. Pt is from home with spouse and is currently on room air. Neurology and surgery consulted. Pt having temporal artery biopsy tomorrow. PT/OT/ST ordered. SS will continue to follow for discharge planning.
--- NOTE | 2020-11-10 13:22 | RAD ---
EXAM: CT angiogram of the head and neck with intravenous contrast. HISTORY: Right central artery occlusion. TECHNIQUE: Computed tomographic images of the head and neck were obtained following the administratio n of intravenous contrast. Three-dimensional and maximum intensity projection images were obtained. *One or more of the following individualized dose reduction techniques were utilized for this examina tion: 1. Automated exposure control. 2. Adjustment of the mA and/or kV according to patient size. 3. Use of iterative reconstruction technique. COMPARISON: Brain MRI dated 11/09/2020. FINDINGS: There is a normal caliber aortic arch. There is partially calcified and vascular plaque inv olving the origins of the arch great vessels. This results in less than 25 percent stenosis. There is also partially calcified atherosclerotic plaque involving the origin of the right vertebral artery, resulting in near complete occlusion. There is reconstitution of flow within the remainder of the rig ht vertebral artery. There is also a widely patent left vertebral artery. The vertebral arteries are codominant. The basilar artery is widely patent. There is severely partially calcified atherosclerotic plaque involving the right carotid bulb and nannette gin of the right internal carotid artery. This results in near complete occlusion of the vessel origi n. There is linear thrombus within the central aspect of the proximal right internal carotid artery e xtending 1.8 cm from the vessel origin at the carotid bifurcation. There is decreased flow within the right internal carotid artery distal to the aforementioned proximal thrombus. There is partially huy cified atherosclerotic plaque within the cavernous and supraclinoid right ICA resulting in greater th an 70 percent stenosis. There is mild partially calcified atherosclerotic plaque within the left carotid bulb. There is a tra nsitional partially calcified atherosclerotic plaque within the cavernous and supraclinoid left inter nal carotid artery resulting in less than 50 percent stenosis. There is a 2 mm suspected ulcerated pl aque along the medial aspect of the cavernous left ICA. No convincing aneurysm is seen in this locati on. There is asymmetry in the caliber of the left greater than right A1 and A2 segments, the latter of wh ich serves both anterior cerebral artery territories. There is a patent right posterior communicating artery. The left posterior commuting indicating arteries likely hypoplastic or absent. No occlusion is seen involving the anterior, middle or posterior cerebral arteries. There is no suspicious enhancing lesion. There is no mass effect or midline shift. There is no hydroc ephalus. The orbits are unremarkable. There are bilateral maxillary sinus mucous retention cyst. The mastoid a ir cells are clear. The aorta is midline and mildly patent. No suspicious thyroid lesion is seen. The lung apices are unremarkable. There is no lymphadenopathy. There are degenerative changes involving the cervical spine. The posterior arch of C1 is gradually nonfused. The degenerative changes are not associated with severe foraminal or central canal stenosis. IMPRESSION: 1. 1.8 cm linear and possibly mobile thrombus within the central lumen of the proximal right ICA. The re is severe atherosclerosis at the origin of the right ICA resulting in near complete occlusion and associated decreased flow throughout the remainder of the right ICA. There is superimposed severe ath erosclerosis involving the distal ICA resulting in greater than 70 percent stenosis. No convincing ce ntral arterial embolism/occlusion is seen on this exam. 2. Mild asymmetry in the caliber of the left greater than right A1 and A2 segments, the left which ap pear to serve both anterior cerebral artery territories. There is also a patent right posterior commu nicating artery and suspected hypoplastic or absent left posterior communicating artery, a normal nelson iant. 3. Small subtle areas of hypodensity within the right frontal lobe due to acute infarction, better de monstrated on the MRI performed one day prior. 4. Bilateral cerebral white matter changes, likely due to chronic small vessel disease. Findings were discussed with with Tracie, the nurse caring for the patient, at 1300 hours on 11/10/2020 [facility] Compliance Statement - Stenosis calculations for CT, MR and conventional angiography are based u julio measurement of the distal ICA diameter in accordance with the NASCET methodology. Stenosis calcu lations for carotid ultrasound studies are derived from validated velocity criteria which are known t o correlate with the NASCET methodology. Electronically signed by: Christina Marin MD (11/10/2020 1:20 PM) [id number]
[2020-11-10 13:23] LABS: BASO % 0 % (0-3); EOS % 0 % (0-3); HEMATOCRIT 39.6 % (36.0-47.0); HEMOGLOBIN 13.2 g/dL (12.0-15.5); LYMPH # 2.9 x10^3/uL (1.0-4.8); LYMPH % 27 % (24-48); MEAN CORPUSCULAR HEMOGLOBIN 31 pg (25-35); MEAN CORPUSCULAR HGB CONC 33 g/dL (31-37); MEAN CORPUSCULAR VOLUME 94 fL (79-100); MONO # 0.8 x10^3/uL (0.0-1.1); MONO % 8 % (0-9); NEUT # 7.1 x10^3/uL (1.8-7.7); NEUT % 65 % (31-73); PLATELET COUNT 240 x10^3/uL (140-400); RED BLOOD COUNT 4.21 x10^6/uL (3.50-5.40); WHITE BLOOD COUNT 10.8 x10^3/uL (4.0-11.0)
[2020-11-10] MEDS: ASPIRIN ENTERIC COATED 325 MG TABLET.DR. PO SCH (14:18)
[2020-11-10 15:00] VITALS: BP 162/52
--- NOTE | 2020-11-10 15:21 | PDOC2 ---
CONSULT Date of Service Date of Service DATE: 11/10/20 TIME: 15:06 Reason for Consult Reason for Consult: Possible mobile thrombus proximal right internal carotid artery, right central retinal artery occlusion. Referring Physician Referring Physician: Dr. Arnold Identification/Chief Complaint Chief Complaint Right eye pain with vision loss Source Source: Caregiver, Chart review, Patient History of Present Illness Reason for Visit: This is a 75-year-old female who was admitted with painful onset of right eye pain and vision loss. Patient noted on 11/06/2020 to have sudden onset of right eye pain and vision loss, when this did not improve she went to her eye doctor who referred her to the emergency room. Patient was seen in consultation by neurology and was noted to have a right central retinal artery occlusion. In addition she was noted to have a sed rate of 69 and a CRP of 3.9. She received a single dose of Solu-Medrol and was started on aspirin. She was scheduled for temporal artery biopsy tomorrow. She underwent further stroke work-up. CT angio gram demonstrates 1.8 cm linear and possibly mobile thrombus within the central lumen of the proximal right ICA. There is severe atherosclerosis at the origin of the right ICA resulting in near complete occlusion and associated decreased flow throughout the remainder of the right ICA. There is superimposed severe atherosclerosis involving the distal ICA resulting in greater than 70 percent stenosis. No convincing central arterial embolism/occlusion is seen on this exam. MRI suggests Small area of acute infarct in the right frontal lobe, with an additional focus just posterior to this. No acute hemorrhage. Patient reports some improvement in vision and pain. Patient denies any history of TIA or strokelike symptoms. She denies any history of chest pain or palpitations. She denies any history of coagulopathy. Patient has a recent history of gastric ulcers diagnoses in 06/2020. She received the [employer] Covid Vaccine 11/01/2020. She denies any nausea or vomiting, she denies any chills or fatigue. Past Medical History Cardiovascular: HTN GI: Diverticulosis Past Surgical History Past Surgical History: Tonsillectomy, Hysterectomy Family History Family History: Other (noncontributory to current illness ) Social History No ALCOHOL: none Drugs: None Lives: with Family Current Medications Current Medications Current Medications Methylprednisolone Sodium Succinate (SOLU-Medrol 125MG VIAL) 125 mg 1X ONCE IV Last administered on 11/09/20at 16:00; Start 11/09/20 at 16:00; Stop 11/09/20 at 16:20; Status DC Atorvastatin Calcium (Lipitor) 80 mg QHS PO Last administered on 11/09/20at 21:51; Start 11/09/20 at 21:00 Aspirin (Ecotrin) 325 mg DAILYWBKFT PO Last administered on 11/10/20at 14:18; Start 11/09/20 at 16:30 Aspirin (Aspirin Rectal Supp) 300 mg PRN DAILY PRN ID IF UNABLE TO TAKE PO; Start 11/09/20 at 16:15 Sennosides (Senna) 17.2 mg PRN BID PRN PO CONSTIPATION; Start 11/09/20 at 17:45 Docusate Sodium (Colace) 100 mg PRN DAILY PRN PO HARD STOOLS; Start 11/09/20 at 17:45 Ondansetron HCl (Zofran) 4 mg PRN Q6HRS PRN IVP NAUSEA/VOMITING; Start 11/09/20 at 17:45 Dextrose (Dextrose 50%-Water Syringe) 12.5 gm PRN Q15MIN PRN IV SEE COMMENTS; Start 11/09/20 at 17:45 Acetaminophen (Tylenol) 650 mg PRN Q4HRS PRN PO TEMP OVER 100.4F OR MILD PAIN; Start 11/09/20 at 17:45 Lisinopril (Prinivil) 20 mg DAILY PO Last administered on 11/10/20at 14:19; Start 11/10/20 at 09:00 Pantoprazole Sodium (Protonix) 40 mg DAILYAC PO Last administered on 11/10/20at 14:18; Start 11/10/20 at 07:30 Sucralfate (Carafate) 1 gm QIDACHS PO Last administered on 11/10/20at 14:18; Start 11/10/20 at 07:30 Hydrochlorothiazide (Microzide) 12.5 mg DAILY PO Last administered on 11/10/20at 14:19; Start 11/10/20 at 09:00 Iohexol (Omnipaque 300 Mg/ml) 75 ml 1X ONCE IV ; Start 11/10/20 at 08:30; Stop 11/10/20 at 08:31; Status DC Info (CONTRAST GIVEN -- Rx MONITORING) 1 each PRN DAILY PRN MC SEE COMMENTS; Start 11/10/20 at 08:30; Stop 11/12/20 at 08:29 Fentanyl Citrate (Fentanyl 2ml Vial) 25 mcg PRN Q5MIN PRN IVP MILD PAIN 1-3; Start 11/11/20 at 06:00; Stop 11/11/20 at 20:00 Fentanyl Citrate (Fentanyl 2ml Vial) 50 mcg PRN Q5MIN PRN IVP MODERATE PAIN 4- 6; Start 11/11/20 at 06:00; Stop 11/11/20 at 20:00 Morphine Sulfate (Morphine Sulfate) 1 mg PRN Q10MIN PRN IVP SEVERE PAIN 7-10; Start 11/11/20 at 06:00; Stop 11/11/20 at 20:00 Ringer's Solution 1,000 ml @ 30 mls/hr Q24H IV ; Start 11/11/20 at 06:00; Stop 11/11/20 at 17:59 Hydromorphone HCl (Dilaudid) 0.5 mg PRN Q10MIN PRN IVP SEVERE PAIN 7-10, 2nd CHOICE; Start 11/11/20 at 06:00; Stop 11/11/20 at 20:00 Prochlorperazine Edisylate (Compazine) 5 mg PACU PRN PRN IVP NAUSEA, MRX1; Start 11/11/20 at 06:00; Stop 11/11/20 at 20:00 Iohexol (Omnipaque 300 Mg/ml) 75 ml 1X ONCE IV Last administered on 11/10/20at 12:56; Start 11/10/20 at 12:30; Stop 11/10/20 at 12:31; Status DC Info (CONTRAST GIVEN -- Rx MONITORING) 1 each PRN DAILY PRN SEE COMMENTS; Start 11/10/20 at 12:30; Stop 11/12/20 at 12:29 Active Scripts Active Reported Sucralfate 1 Gm Tablet 1 Tab PO QID Pantoprazole Sodium (Pantoprazole Sodium) 40 Mg Tablet.dr 40 Mg PO DAILYAC Hydrochlorothiazide Tablet (Hydrochlorothiazide) 12.5 Mg Tablet 12.5 Mg PO DAILY PRN Lisinopril 20 Mg Tablet 1 Tab PO DAILY Atenolol 100 Mg Tablet 1 Tab PO DAILY Allergies Allergies: Coded Allergies: acetaminophen (Verified Allergy, Severe, Lip swelling, 11/09/20) ROS Review of System Constitutional: Denies fever or chills Eyes: As per HPI HENT: Denies nasal congestion or sore throat Respiratory: Denies cough or shortness of breath Cardiovascular: Denies any palpitations or chest pain GI: Denies abdominal pain, nausea, vomiting, bloody stools or diarrhea, hx gastric ulcer, diverticulitis. : Denies dysuria or hematuria Musculoskeletal: No muscle pain or weakness. Integument: No rashes or lesions Neurologic: No gross deficits Endocrine: No diagnosed diabetes Physical Exam Physical Exam General: Alert and oriented X3 HEENT: Atraumatic, Left pupil reacts. Mucous membranes moist. Neck: Supple no lymphadenopathy Cardiac: Heart rate regular. Normal carotid pulses. No bruit. Lungs: CTA, non-labored respirations. Abdomen: Soft, obese, nontender, nondistended, no palpable masses. Extremities: 2+ bilateral radial, femoral pulses, feet warm, no swelling. Unable to appreciate distal pulses. Musculoskeletal: Gait steady. Moving all extremities. Skin: No rashes or lesions. Neurological: Motor and sensation intact. Speech is clear, no facial asymmetry. [employer] are equal. Psychiatry: No depression or anxiety Vitals VITALS Vital Signs Date Time Temp Pulse Resp B/P (MAP) Pulse Ox O2 Delivery O2 Flow Rate FiO2 11/10/20 14:19 83 183/66 11/10/20 11:00 98.0 18 97 Room Air 98.0 Labs Labs Laboratory Tests Test 11/09/20 14:30 11/10/20 09:45 11/10/20 13:05 11/10/20 14:28 White Blood Count 7.8 x10^3/uL (4.0-11.0) 10.8 x10^3/uL (4.0-11.0) Red Blood Count 4.13 x10^6/uL (3.50-5.40) 4.21 x10^6/uL (3.50-5.40) Hemoglobin 13.0 g/dL (12.0-15.5) 13.2 g/dL (12.0-15.5) Hematocrit 38.6 % (36.0-47.0) 39.6 % (36.0-47.0) Mean Corpuscular Volume 94 fL (79-100) 94 fL (79-100) Mean Corpuscular Hemoglobin 32 pg (25-35) 31 pg (25-35) Mean Corpuscular Hemoglobin Concent 34 g/dL (31-37) 33 g/dL (31-37) Red Cell Distribution Width 12.8 % (11.5-14.5) 13.0 % (11.5-14.5) Platelet Count 247 x10^3/uL (140-400) 240 x10^3/uL (140-400) Neutrophils (%) (Auto) 55 % (31-73) 65 % (31-73) Lymphocytes (%) (Auto) 38 % (24-48) 27 % (24-48) Monocytes (%) (Auto) 6 % (0-9) 8 % (0-9) Eosinophils (%) (Auto) 1 % (0-3) 0 % (0-3) Basophils (%) (Auto) 0 % (0-3) 0 % (0-3) Neutrophils # (Auto) 4.3 x10^3/uL (1.8-7.7) 7.1 x10^3/uL (1.8-7.7) Lymphocytes # (Auto) 3.0 x10^3/uL (1.0-4.8) 2.9 x10^3/uL (1.0-4.8) Monocytes # (Auto) 0.5 x10^3/uL (0.0-1.1) 0.8 x10^3/uL (0.0-1.1) Eosinophils # (Auto) 0.1 x10^3/uL (0.0-0.7) 0.0 x10^3/uL (0.0-0.7) Basophils # (Auto) 0.0 x10^3/uL (0.0-0.2) 0.0 x10^3/uL (0.0-0.2) Erythrocyte Sedimentation Rate 69 (0-25) Sodium Level 143 mmol/L (136-145) 143 mmol/L (136-145) Potassium Level 4.1 mmol/L (3.5-5.1) 4.0 mmol/L (3.5-5.1) Chloride Level 104 mmol/L (98-107) 104 mmol/L (98-107) Carbon Dioxide Level 32 mmol/L (21-32) 29 mmol/L (21-32) Anion Gap 7 (6-14) 10 (6-14) Blood Urea Nitrogen 13 mg/dL (7-20) 16 mg/dL (7-20) Creatinine 0.8 mg/dL (0.6-1.0) 0.7 mg/dL (0.6-1.0) Estimated GFR (Cockcroft-Gault) 84.4 98.4 BUN/Creatinine Ratio 16 (6-20) Glucose Level 213 mg/dL (70-99) 181 mg/dL (70-99) Calcium Level 9.3 mg/dL (8.5-10.1) 9.7 mg/dL (8.5-10.1) Total Bilirubin 0.2 mg/dL (0.2-1.0) Aspartate Amino Transf (AST/SGOT) 15 U/L (15-37) Alanine Aminotransferase (ALT/SGPT) 29 U/L (14-59) Alkaline Phosphatase 71 U/L (46-116) Troponin I Quantitative < 0.017 ng/mL (0.000-0.055) C-Reactive Protein, Quantitative 3.9 mg/L (0-3.3) Total Protein 7.7 g/dL (6.4-8.2) Albumin 3.3 g/dL (3.4-5.0) Albumin/Globulin Ratio 0.8 (1.0-1.7) Phosphorus Level 4.1 mg/dL (2.6-4.7) Magnesium Level 2.2 mg/dL (1.8-2.4) Triglycerides Level 101 mg/dL (0-150) Cholesterol Level 241 mg/dL (0-200) LDL Cholesterol, Calculated 167 mg/dL (0-100) VLDL Cholesterol, Calculated 20 mg/dL (0-40) Non-HDL Cholesterol Calculated 187 mg/dL (0-129) HDL Cholesterol 54 mg/dL (40-60) Cholesterol/HDL Ratio 4.5 SARS-CoV-2 Antigen (Rapid) Negative (NEGATIVE) Laboratory Tests Test 11/10/20 09:45 11/10/20 13:05 11/10/20 14:28 Sodium Level 143 mmol/L (136-145) Potassium Level 4.0 mmol/L (3.5-5.1) Chloride Level 104 mmol/L (98-107) Carbon Dioxide Level 29 mmol/L (21-32) Anion Gap 10 (6-14) Blood Urea Nitrogen 16 mg/dL (7-20) Creatinine 0.7 mg/dL (0.6-1.0) Estimated GFR (Cockcroft-Gault) 98.4 Glucose Level 181 mg/dL (70-99) Calcium Level 9.7 mg/dL (8.5-10.1) Phosphorus Level 4.1 mg/dL (2.6-4.7) Magnesium Level 2.2 mg/dL (1.8-2.4) Triglycerides Level 101 mg/dL (0-150) Cholesterol Level 241 mg/dL (0-200) LDL Cholesterol, Calculated 167 mg/dL (0-100) VLDL Cholesterol, Calculated 20 mg/dL (0-40) Non-HDL Cholesterol Calculated 187 mg/dL (0-129) HDL Cholesterol 54 mg/dL (40-60) Cholesterol/HDL Ratio 4.5 White Blood Count 10.8 x10^3/uL (4.0-11.0) Red Blood Count 4.21 x10^6/uL (3.50-5.40) Hemoglobin 13.2 g/dL (12.0-15.5) Hematocrit 39.6 % (36.0-47.0) Mean Corpuscular Volume 94 fL (79-100) Mean Corpuscular Hemoglobin 31 pg (25-35) Mean Corpuscular Hemoglobin Concent 33 g/dL (31-37) Red Cell Distribution Width 13.0 % (11.5-14.5) Platelet Count 240 x10^3/uL (140-400) Neutrophils (%) (Auto) 65 % (31-73) Lymphocytes (%) (Auto) 27 % (24-48) Monocytes (%) (Auto) 8 % (0-9) Eosinophils (%) (Auto) 0 % (0-3) Basophils (%) (Auto) 0 % (0-3) Neutrophils # (Auto) 7.1 x10^3/uL (1.8-7.7) Lymphocytes # (Auto) 2.9 x10^3/uL (1.0-4.8) Monocytes # (Auto) 0.8 x10^3/uL (0.0-1.1) Eosinophils # (Auto) 0.0 x10^3/uL (0.0-0.7) Basophils # (Auto) 0.0 x10^3/uL (0.0-0.2) SARS-CoV-2 Antigen (Rapid) Negative (NEGATIVE) Images Images reviewed, see HPI Dr Navarrete independently reviewed CTA Assessment/Plan Assessment/Plan 75-year-old female with right central retinal artery occlusion, small right frontal lobe infarct. CT angiogram demonstrates right internal carotid artery mobile thrombus with severe carotid artery stenosis. History and physical examination was discussed with Dr. Navarrete and she was able to independently review the CT angiogram. The mobile thrombus within her internal carotid artery is quite extensive and would best be treated in conjunction with the neurointerventional radiologist at . We recommend patient be transferred to [facility] with consultation to neurology and interventional neurology. The patient may benefit from anticoagulation with heparin drip, will defer to neurology. I discussed the plan of care and our recommendations for transfer with the patient and her . They agree and are willing to proceed. I also discussed this with the patient's nurse she will contact the [facility] in order to make the transfer. DANYEL SALAS APRN Nov 10, 2020 15:21
--- NOTE | 2020-11-10 16:57 | NUR ---
Discharge Note: NAYLA BUCKLEY [facility] Patient transferred to via [facility]. Called report to Jesus at [facility] at 16[address] IV [address]. Monitor off and placed at nurses station. IV Ativan given prior to discharge due to patient being anxious and tearful. Patient stable at time of discharge at 1630. Med rec printed and sent with patient in patient packet.
[2020-11-11] MEDS ORDERED: HYDROmorphone 2 MG/ML VIAL IVP PRN (06:00)
[2020-11-11] MEDS ORDERED: MORPHINE SULFATE 2 MG/ML VIAL. IVP PRN (06:00)
[2020-11-11] MEDS ORDERED: PROCHLORPERAZINE 10 MG/2 ML VIAL. IVP PRN (06:00)
[2020-11-11] MEDS ORDERED: IV RINGERS,LACTATED 1000ML 1,000 ML IV SCH (06:00)
[2020-11-11] MEDS ORDERED: fentaNYL PF VIAL 100 MCG/2 ML VIAL IVP PRN ×2 (06:00)
== END 2020-11-10 16:30 | disposition short-term general hospital (02) | DRG 123 ==
LOC: ER 12:22 → ED HOLD 15:40 → 2 SOUTH 21:06
PROVIDERS: ADMIT Internal Medicine; ATTEND Internal Medicine
DX: H34.11 Central retinal artery occlusion, right eye (principal); I63.9 Cerebral infarction, unspecified; I10 Essential (primary) hypertension; I73.9 Peripheral vascular disease, unspecified; I65.21 Occlusion and stenosis of right carotid artery; E78.5 Hyperlipidemia, unspecified; R70.0 Elevated erythrocyte sedimentation rate; R79.82 Elevated C-reactive protein (CRP); K57.90 Diverticulosis of intestine, part unspecified, without perforation or abscess without bleeding; Z90.710 Acquired absence of both cervix and uterus; Z88.6 Allergy status to analgesic agent; Z79.899 Other long term (current) drug therapy; Z87.11 Personal history of peptic ulcer disease
CPT/HCPCS: 36415; 70450; 70496; 70498; 70551; 71045; 80048; 80053; 80061; 83735; 84100; 84484; 85025; 85651; 86140; 87426; 93005; 96374; 99285; J2060; J2930; Q9967; G0378